=== PATIENT | male | born 1980 | race Caucasian/White ===

== ENCOUNTER 2016-11-05 10:40 | Outpatient (CLI) | payer MEDICAID | END 2016-11-05 10:41 | disposition home or self-care (01) | DRG 556 | LOC: CONVCARE 10:40 | PROVIDERS: ATTEND Orthopaedic Surgery | DX: M25.531 Pain in right wrist (principal) | CPT/HCPCS: 73100 ==

== ENCOUNTER 2018-10-26 19:31 | Emergency (ER) | payer MEDICAID, OTHER ==
[2018-10-26] MEDS ORDERED: APAP/HYDROCODONE 1 EACH TABLET PO ONE (19:39)
[2018-10-26] MEDS ORDERED: APAP/HYDROCODONE 1 EACH TABLET ONE (19:41)
[2018-10-26] MEDS ORDERED: SILVER SULFADIAZINE CREAM 1 APPL CRE TOP ONE ×2 (19:42→19:47)
[2018-10-26] MEDS ORDERED: TDAP VACCINE 0.5 ML SUS IM ONE (19:50)
[2018-10-26 19:58] VITALS: RESP 20; O2SAT 99
[2018-10-26] MEDS ORDERED: IBUPROFEN 600 MG TAB ONE (20:37)
[2018-10-26] MEDS ORDERED: IBUPROFEN 600 MG TAB PO ONE (20:39)
[2018-10-26 20:46] VITALS: BP 146/74; PULSE 80; TEMP 97.9
[2018-10-27] MEDS ORDERED: TDAP VACCINE 0.5 ML SUS IM ONE (00:29)
== END 2018-10-26 20:45 | disposition home or self-care (01) | DRG 935 ==
LOC: ED 19:31
DX: T23.102A Burn of first degree of left hand, unspecified site, initial encounter (principal); T31.0 Burns involving less than 10% of body surface; X10.2XXA Contact with fats and cooking oils, initial encounter
CPT/HCPCS: 90471; 90715; 99282; 99284; G0390; A9270-GY